=== PATIENT | male | born 1965 | race American Indian/Alaskan Native ===

== ENCOUNTER 2016-04-22 13:02 | Emergency (ER) | payer MEDICARE, MEDICAID ==
[2016-04-22 17:30] VITALS: BP 129/85
[2016-04-22] MEDS ORDERED: DUONEB 0.5 MG-3 MG/3 ML SOLN IH ONE (17:54)
--- NOTE | 2016-04-22 18:55 | XRay Report ---
FINAL REPORT PROCEDURE: XR CHEST ROUTINE 2V TECHNIQUE: PA and lateral chest radiographs were obtained. CPT 09302 HISTORY: Shortness of breath COMPARISON: No prior studies are available for comparison. FINDINGS: Heart: Normal contour. Mediastinum/Vessels: Normal contour. Lungs/Pleural space: No infiltrate, effusion, or pneumothorax. Bony thorax: No acute osseous abnormality. Other: IMPRESSION: No pulmonary infiltrates are identified.
--- NOTE | 2016-04-22 19:04 | Emergency Department Report ---
- General Chief Complaint: Upper Respiratory Infection Stated Complaint: SINUS COLD Time Seen by Provider: 04/22/16 17:50 Source: patient Mode of arrival: Ambulatory Limitations: No Limitations - History of Present Illness Initial Comments: Patient presents with cough productive of yellow phlegm 2 days. And admits to cold symptoms 1 week. He has been taken Mucinex without relief. Admits to shortness of breath. Has a history of diabetes. MD Complaint: cough, nasal congestion -: Gradual Associated Symptoms: fever, rhinorrhea, nasal congestion, cough, shortness of breath - Related Data Previous Rx's Medication Instructions Recorded Last Taken Type ALBUTEROL Inhaler [ProAir HFA 2 puff IH QID PRN #1 inhalation 04/22/16 Unknown Rx Inhaler] Amoxicillin/K Clav Tab [Augmentin 1 tab PO Q12HR #20 tab 04/22/16 Unknown Rx 875 mg] Allergies Allergy/AdvReac Type Severity Reaction Status Date / Time No Known Allergies Allergy Unverified 04/22/16 13:40 ED Review of Systems ROS: Stated complaint: SINUS COLD Other details as noted in HPI Constitutional: denies: chills, fever ENT: congestion. denies: ear pain, throat pain Respiratory: cough, shortness of breath. denies: wheezing Cardiovascular: denies: chest pain, palpitations Gastrointestinal: denies: abdominal pain, nausea, diarrhea Genitourinary: denies: urgency, dysuria Musculoskeletal: denies: back pain, joint swelling, arthralgia Skin: denies: rash, lesions Neurological: denies: headache, weakness, paresthesias ED Past Medical Hx - Past Medical History Hx Dementia: Yes Additional medical history: CHRONIC BACK PAIN - Surgical History Past Surgical History?: No - Social History Smoking Status: Never Smoker Substance Use Type: None - Medications Home Medications: Home Medications Medication Instructions Recorded Confirmed Last Taken Type ALBUTEROL Inhaler [ProAir HFA 2 puff IH QID PRN #1 inhalation 04/22/16 Unknown Rx Inhaler] Amoxicillin/K Clav Tab [Augmentin 1 tab PO Q12HR #20 tab 04/22/16 Unknown Rx 875 mg] ED Physical Exam - General Limitations: No Limitations General appearance: alert, in no apparent distress - Head Head exam: Present: atraumatic, normocephalic - Eye Eye exam: Present: normal appearance - ENT ENT exam: Present: mucous membranes moist, TM's normal bilaterally - Expanded ENT Exam Expanded Mouth exam: Present: normal external inspection Teeth exam: Present: normal inspection Throat exam: Positive: normal inspection - Neck Neck exam: Present: normal inspection - Respiratory Respiratory exam: Absent: respiratory distress, wheezes (throughout), rhonchi ( throughout) - Cardiovascular Cardiovascular Exam: Present: regular rate, normal rhythm. Absent: systolic murmur, diastolic murmur, rubs, gallop - GI/Abdominal GI/Abdominal exam: Present: soft, normal bowel sounds - Neurological Exam Neurological exam: Present: alert, oriented X3 - Skin Skin exam: Present: warm, dry, intact, normal color. Absent: rash ED Course Vital Signs 04/22/16 04/22/16 13:36 17:23 Temperature 97.9 F 97.8 F Pulse Rate 77 74 Respiratory 16 18 Rate Blood Pressure 121/86 Blood Pressure 129/85 [Left] O2 Sat by Pulse 96 99 Oximetry ED Medical Decision Making - Medical Decision Making Patient presents with shortness of breath and cough 2 days of yellow sputum. He did show me what he has coughed up in a cup which was yellow, thick. He also has rhonchi and wheezing. Patient was given respiratory treatment and chest x-ray was within normal. I will give patient Augmentin twice a day 10 days and an albuterol inhaler. - Differential Diagnosis asthma, sinusitis, URI Critical Care Time: No Critical care attestation.: If time is entered above; I have spent that time in minutes in the direct care of this critically ill patient, excluding procedure time. ED Disposition Clinical Impression: URI (upper respiratory infection) Disposition: DISCHARGED TO HOME OR SELFCARE Is pt being admited?: No Does the pt Need Aspirin: No Condition: Stable Instructions: Upper Respiratory Infection (ED), Cold Symptoms (ED) Additional Instructions: Follow-up if symptoms do not resolve or worsen. Prescriptions: Amoxicillin/K Clav Tab [Augmentin 875 mg] 1 tab PO Q12HR #20 tab ALBUTEROL Inhaler [ProAir HFA Inhaler] 2 puff IH QID PRN #1 inhalation PRN Reason: Shortness Of Breath Forms: Work/School Release Form(ED) Time of Disposition: 19:07
== END 2016-04-22 19:29 | disposition home or self-care (01) ==
LOC: ED 13:02
DX: J06.9 Acute upper respiratory infection, unspecified (principal); F03.90 Unspecified dementia, unspecified severity, without behavioral disturbance, psychotic disturbance, mood disturbance, and anxiety; G89.29 Other chronic pain
CPT/HCPCS: 71020; 99283